=== PATIENT | male | born 1955 | race Caucasian/White ===

== ENCOUNTER → 2017-03-23 | Outpatient (CLI) | payer BC ==
--- NOTE | 2017-03-23 10:33 | PCVCIMAG ---
APPROVED REPORT Study performed: 03/23/2017 09:02:03 EXAM: Comprehensive 2D, Doppler, and color-flow Echocardiogram Patient Location: Echo lab Room #: 2Status: routine BSA: 1.89 HR: 50 bpmBP: 134/84 mmHg Rhythm: LBBB Other Information Study Quality: Good Risk Factors: Cardiac Risk Factors: HTN, CAD Indications Aortic Valve Disease CAD Hypertension/HDD AV replacement #23 [address] [place] mechanical, coarctation repair age 12 2D Dimensions LVEF(%): 65.59 (>50%) IVSd: 7.49 (7-11mm)LVOT Diam: 23.18 (18-24mm) LVDd: 51.51 mm PWd: 7.61 (7-11mm)Ascending Ao: 28.24 (22-36mm) LVDs: 32.83 (25-40mm) Left Atrium: 31.86 (27-40mm) Aortic Root: 27.43 mm LV Single Plane 4CH: 52.73 % LV Single Plane 2CH: 67.67 %Bay's LVEF: 60.20 % Biplane EF: 60.8 % Volumes Left Atrial Volume (Systole) Single Plane 4CH: 52.47 mLSingle Plane 2CH: 57.94 mL Biplane LA Volume: 56.00 mLLA ESV Index: 30.00 mL/m2 Aortic Valve AoV Peak Axel.: 2.36 m/s AO Peak Gr.: 24.15 mmHgLVOT Max P.06 mmHg AO Mean Gr.: 10.64 mmHgLVOT Mean P.82 mmHg AO V2 Mean: 1.53 m/sLVOT Max V: 1.29 m/s AO V2 VTI: 53.42 cmLVOT Mean V: 0.90 m/s JULIO CÉSAR (VTI): 2.52 [id number] V1 VTI: 31.91 cm JULIO CÉSAR Vmax: 2.31 cm2 SV (LVOT): 134.55 mL Mitral Valve E/A Ratio: 1.5 MV Decel. Time: 261.77 ms MV E Max Axel.: 1.52 m/s MV A Axel.: 1.02 m/s IVRT: 96.89 ms TDI E/Lateral E': 15.20E/Medial E': 30.40 Medial E' Axel.: 0.05 m/s Lateral E' Axel.: 0.10 m/s Pulmonary Valve PV Peak Axel.: 1.04 m/sPV Peak Gr.: 4.35 mmHg Pulmonary Vein P Vein S: 0.61 m/sP Vein A: 0.40 m/s P Vein D: 0.58 m/sP Vein A Dur.: 166.1 msec P Vein S/D Ratio: 1.05 Tricuspid Valve TR Peak Axel.: 1.91 m/s TR Peak Gr.: 14.60 mmHg TV Vmax: 0.60 m/sPA Pressure: 22.00 mmHg Left Ventricle The left ventricle is normal size. There is discordant septal wall motion secondary to left bundle branch block. There is normal left ventricular wall thickness. Left ventricular systolic function is normal. The left ventricular ejection fraction is within the normal range. LVEF is 55-60%. Grade II - pseudonormal filling dynamics. Right Ventricle The right ventricle is normal size. The right ventricular systolic function is normal. Atria The left atrium size is normal. The right atrium size is normal. Aortic Valve Aortic valve replacement with a #23 [address] [place] mechanical Mechanical aortic valve is present. There are normal prosthetic aortic valve gradients. The opening of the prosthetic tricuspid valve appears to be limited. No aortic regurgitation is present. There is no aortic valvular stenosis. Mitral Valve The mitral valve is normal in structure. There is no mitral valve regurgitation noted. No evidence of mitral valve stenosis. Tricuspid Valve The tricuspid valve is normal in structure. There is no tricuspid valve regurgitation noted. Pulmonic Valve The pulmonary valve is normal in structure. There is no pulmonic valvular regurgitation. Great Vessels The aortic root is normal in size. History of coarctation repair. The ascending aorta is normal in size. Descending aorta is normal in caliber and velocity. IVC is normal in size and collapses with >50% inspiration Pericardium There is no pericardial effusion. There is no pleural effusion. <Conclusion> The left ventricle is normal size. Left ventricular systolic function is normal. The right ventricle is normal size. Aortic valve replacement with a #23 [address] [place] mechanical, with normal function. There is no mitral valve regurgitation noted. There is no pericardial effusion.
== END | disposition home or self-care (01) ==
LOC: PCVCIMAG 09:05
PROVIDERS: ATTEND Internal Medicine Cardiovascular Disease
DX: I25.10 Atherosclerotic heart disease of native coronary artery without angina pectoris (principal); I44.7 Left bundle-branch block, unspecified; I10 Essential (primary) hypertension; E78.00 Pure hypercholesterolemia, unspecified; Z88.8 Allergy status to other drugs, medicaments and biological substances; Z79.82 Long term (current) use of aspirin; Z79.01 Long term (current) use of anticoagulants; Z79.899 Other long term (current) drug therapy; Z95.4 Presence of other heart-valve replacement
CPT/HCPCS: 36415; 93306; G0463

== ENCOUNTER → 2018-09-22 | Outpatient (CLI) | payer BC, OTHER ==
--- NOTE | 2018-09-22 11:05 | PCVCIMAG ---
APPROVED REPORT Study performed: 09/22/2018 08:58:04 EXAM: Comprehensive 2D, Doppler, and color-flow Echocardiogram Patient Location: Echo lab Status: routine BSA: 1.90 HR: 53 bpmBP: 144/90 mmHg Rhythm: LBBB, bradycardia Other Information Study Quality: Adequate Indications CAD #23 [address] [place] mechanical AVR, hx aortic coarctation repair 2D Dimensions IVSd: 14.59 (7-11mm)LVOT Diam: 23.30 (18-24mm) LVDd: 42.12 mm PWd: 11.80 (7-11mm)Ascending Ao: 34.37 (22-36mm) LVDs: 32.96 (25-40mm) Left Atrium: 40.40 (27-40mm) Aortic Root: 35.32 mm LV Single Plane 4CH: 57.68 % LV Single Plane 2CH: 57.68 % Biplane EF: 57.5 % Volumes Left Atrial Volume (Systole) Single Plane 4CH: 54.28 mLSingle Plane 2CH: 79.21 mL LA ESV Index: 36.00 mL/m2 Aortic Valve AoV Peak Axel.: 2.28 m/s AO Peak Gr.: 20.71 mmHgLVOT Max P.22 mmHg AO Mean Gr.: 9.64 mmHgLVOT Mean P.76 mmHg AO V2 Mean: 1.43 m/sLVOT Max V: 1.14 m/s AO V2 VTI: 51.95 cmLVOT Mean V: 0.78 m/s JULIO CÉSAR (VTI): 2.33 [id number] V1 VTI: 28.36 cm JULIO CÉSAR Vmax: 2.14 cm2 SV (LVOT): 120.86 mL Mitral Valve E/A Ratio: 1.9 MV Decel. Time: 288.81 ms MV E Max Axel.: 1.37 m/s MV A Axel.: 0.72 m/s IVRT: 128.03 ms Pulmonary Valve PV Peak Axel.: 0.63 m/sPV Peak Gr.: 1.58 mmHg Pulmonary Vein P Vein S: 0.55 m/sP Vein A: 0.44 m/s P Vein D: 0.68 m/sP Vein A Dur.: 193.8 msec P Vein S/D Ratio: 0.81 Tricuspid Valve TR Peak Axel.: 2.32 m/s TR Peak Gr.: 21.53 mmHg Left Ventricle The left ventricle is normal size. Paradoxical septal motion consistent with conduction abnormality. Mild concentric left ventricular hypertrophy. Left ventricular systolic function is normal. The left ventricular ejection fraction is within the normal range. LVEF is 55%. Grade II - pseudonormal filling dynamics. Right Ventricle The right ventricle is normal size. The right ventricular systolic function is normal. Atria Left atrium is mildly dilated. Right atrium is mildly dilated. Aortic Valve Normally functioning #[address] [place] valve in the aortic position. Trace aortic regurgitation. There is no evidence of aortic valve stenosis. Calculated aortic valve area is 2.1 cm2 with maximum pressure gradient of 21 mmHg and mean pressure gradient of 10 mmHg. Mitral Valve The mitral valve is normal in structure. Trace mitral regurgitation. No evidence of mitral valve stenosis. Tricuspid Valve The tricuspid valve is normal in structure. Mild tricuspid regurgitation with PAP of 30 mmHg. Pulmonic Valve The pulmonary valve is normal in structure. Trace pulmonic regurgitation. Great Vessels The aortic root is normal in size. IVC is normal in size and collapses >50% with inspiration. Pericardium There is no pericardial effusion. There is no pleural effusion. <Conclusion> The left ventricle is normal size. Mild concentric left ventricular hypertrophy. Left ventricular systolic function is normal. Paradoxical septal motion consistent with conduction abnormality. Grade II - pseudonormal filling dynamics. The right ventricle is normal size. Left atrium is mildly dilated. Normally functioning #[address] [place] valve in the aortic position. Trace aortic regurgitation. Trace mitral regurgitation. Mild tricuspid regurgitation with PAP of 30 mmHg.
== END | disposition home or self-care (01) ==
LOC: PCVCIMAG 08:53
PROVIDERS: ATTEND Internal Medicine Cardiovascular Disease
DX: I07.1 Rheumatic tricuspid insufficiency (principal); I11.9 Hypertensive heart disease without heart failure; Q21.1 Atrial septal defect; I25.10 Atherosclerotic heart disease of native coronary artery without angina pectoris; Z95.2 Presence of prosthetic heart valve; E78.00 Pure hypercholesterolemia, unspecified
CPT/HCPCS: 93306